=== PATIENT | female | born 1990 | race Two or more races ===

== ENCOUNTER 2017-06-02 17:54 | Emergency (ER) | payer MEDICAID ==
[~2017-06-02] VITALS: Ht 157.5 cm; Wt 76.7 kg
[2017-06-02 17:55] VITALS: BP 125/67
[2017-06-02] MEDS ORDERED: AZITHROMYCIN 500 MG TABLET ONE (18:21)
[2017-06-02] MEDS ORDERED: CEFTRIAXONE 250 MG ONE (18:21)
[2017-06-02] MEDS ORDERED: CEFTRIAXONE 250 MG IM ONE (18:30)
[2017-06-02] MEDS ORDERED: AZITHROMYCIN 500 MG TABLET PO ONE (18:30)
[2017-06-02] MEDS ORDERED: LIDOCAINE 1%, 20ML ONE (18:38)
[2017-06-02 19:23] LABS: HCG UR LOT HCG7030192
[2017-06-02 19:35] LABS: PATH.CAST-FLAG NOT PRESENT; SPERM-FLAG NOT PRESENT; SRC-FLAG NOT PRESENT; XTAL-FLAG NOT PRESENT; YLC-FLAG NOT PRESENT
[2017-06-02 19:43] LABS: HCG UR OBC PASS
== END 2017-06-02 20:24 | disposition home or self-care (01) ==
LOC: ED 20:18
DX: N76.0 Acute vaginitis (principal); Z20.2 Contact with and (suspected) exposure to infections with a predominantly sexual mode of transmission
CPT/HCPCS: 81001; 81025; 87086; 87210; 87491; 87591; 87808; 96372; 99284; J0696